=== PATIENT | female | born 1990 | race Caucasian/White ===

== ENCOUNTER → 2021-11-02 | Outpatient (CLI) | payer BC ==
[~2021-11-02] MED LIST: FLEXERIL 10 MG10 MG PO; IBUPROFEN800 MG PO; MACRODANTIN100 MG PO; NAPROSYN500 MG PO; ZOFRAN 4 MG TAB4 MG PO
== END ==
LOC: HEART 5 13:12
DX: R06.00 Dyspnea, unspecified (principal)
CPT/HCPCS: 94010; 94729; 95012